=== PATIENT | female | born 1990 | race Caucasian/White ===

== ENCOUNTER → 2017-08-01 13:57 | Observation (INO) ==
[2017-08-01 12:42] LABS: Basophils % 0.1 %; Eosinophils % 0.3 %; Hematocrit 35.9 % (35.3-44.9); Hemoglobin 12.4 g/dL (11.5-15.4); Immature Granulocytes % 0.5 % (0-4); Lymphocytes # 1.5 K/mcL (0.6-4.6); Mean Corpuscular HGB Conc 34.5 g/dL (31.6-35.5); Mean Corpuscular Hemoglobin 30.2 pg (28.0-33.3); Mean Corpuscular Volume 87.3 fL (83.0-100.0); Mean Platelet Volume 10.2 fL (9.4-12.4); Monocytes # 0.6 K/mcL (0.0-1.3); Monocytes % 6.3 %; Neutrophils # 7.4 K/mcL (1.6-8.9); Platelet Count 246 K/mcL (140-400); Red Blood Count 4.11 M/mcL (3.82-4.97); Red Cell Distribution Width 12.5 % (11.5-14.5); Segmented Neutrophils % 76.8 %
[2017-08-01 12:51] LABS: Amphetamine Screen,Urine Negative ng/mL (Cutoff=1000); Barbiturate Screen,Urine Negative ng/mL (Cutoff=200); Benzodiazepines Screen,Urine Negative ng/mL (Cutoff=200); Cannabinoid Screen,Urine Negative ng/mL (Cutoff = 50); Cocaine Screen,Urine Negative ng/mL (Cutoff= 300); Opiate Screen,Urine Negative ng/mL (Cutoff=300); Phencyclidine Screen,Urine Negative ng/mL (Cutoff=25)
[2017-08-01 13:11] LABS: Alanine Aminotransferase 12 Units/L (7-52); Aspartate Amino Transferase 11 Units/L (13-39); BUN/Creatinine Ratio 20 (6-26); Blood Urea Nitrogen 9 mg/dL (6-20); Lactate Dehydrogenase 135 Units/L (140-271); eGFR For African Americans > 60 (> 60); eGFR For Non-African Americans > 60 (> 60)
[2017-08-01 13:13] LABS: Creatinine,Urine 123 mg/dL; Protein/Creatinine Ratio,Urine 0.22 mg/mg (0.00-0.20)
--- NOTE | 2017-08-01 13:16 | OB/GYN Progress Note ---
Date of Encounter: 08/01/17 Time of Encounter: 13:14 - Assessment and Plan (1) Fall Current Visit: Yes Status: Acute 23 weeks gestation. Did not hit stomach with fall, was caught as she was falling. Blood type A+ Positive movement No cramping, discharge, bleeding, contractions Likely rebound hypertension after orthstatic hypotension after standing at work. Blood pressures normal. Previous Pre-Eclampsia Labs normal Reactive NST for gestational age Discharge home Take blood pressure BID at home; seek care if >140/90. Patient has cuff at home. Encouraged frequent movement/walking when standing at work to prevent falls/ fainting Discussed when to seek care, PIH precautions and labor precautions Follow up in office with routine care and PRN. Qualifiers: Encounter type: initial encounter Qualified Code(s): W19.XXXA - Unspecified fall, initial encounter (2) 23 weeks gestation of Current Visit: Yes Status: Acute Subjective - Subjective Principal diagnosis: Fainting Spell with increased blood blood pressure after Interval history: Ms Medley is a 27 year old at 23 weeks 1 day gestation that presents to labor and delivery with c/o fainting at work this morning. 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 She states that she remembers feeling dizzy and light headed and then fell. She states that her coworkers then took her blood pressure which were 160's/100's and then have slowly decreased throughout the day. She denies any headaches, vision changes, and epigastric pain. She denies leaking of fluid, contractions, and vaginal bleeding/leaking of fluid. Antepartum ROS: movement normal, no loss of fluid, no vaginal bleeding, no contractions Objective - Vital Signs Vital Signs: Intake and Output 07/31/17 08/01/17 08/01/17 23:59 07:59 15:59 Other: Weight 127 kg Patient Weight 08/01/17 23:59 Weight 127 kg - Exam FHR: auscultation normal, category 1 FHR comments: Baseline 145 Auscultation: bilateral: normal Abdomen: Present: normal appearance, soft, gravid Uterus: Present: normal. Absent: firm - Labs Labs: Abnormal lab results Creatinine 0.46 mg/dL (0.60-1.20) L 08/01/17 12:15 AST 11 Units/L (13-39) L 08/01/17 12:15 Lactate Dehydrogenase 135 Units/L (140-271) L 08/01/17 12:15 Protein/Creatinin Ratio 0.22 mg/mg (0.00-0.20) H 08/01/17 12:15 Urine Total Protein 27 mg/dL (1-14) H 08/01/17 12:15
== END | disposition home or self-care (01) ==
LOC: 1NENULAB
PROVIDERS: ADMIT Student in an Organized Health Care Education/Training Program; ATTEND Student in an Organized Health Care Education/Training Program

== ENCOUNTER 2017-11-23 05:00 | Inpatient (IN) ==
[2017-11-23] MEDS ORDERED: Naloxone 0.4 MG/ML INJ IVP PRN (05:20)
[2017-11-23] MEDS ORDERED: Famotidine 20 MG/2 ML VIAL IVP PRN (05:20)
[2017-11-23] MEDS ORDERED: Ondansetron 4 MG/2 ML VIAL IVP PRN (05:25)
[2017-11-23] MEDS ORDERED: *HR* Nalbuphine 10 MG/ML AMPUL IVP PRN (05:25)
[2017-11-23] MEDS ORDERED: miSOPROStol 25 MCG TABLET PO PRN (05:25)
[2017-11-23] MEDS ORDERED: D5% in Lactated Ringers 1,000 ML IVC SCH (05:30)
[2017-11-23] MEDS ORDERED: Ringers Solution, Lactated 1,000 ML IVC SCH (05:30)
[2017-11-23 05:40] LABS: Basophils % 0.3 %; Eosinophils % 0.6 %; Hemoglobin 11.7 g/dL (11.5-15.4); Immature Granulocytes % 0.4 % (0-4); Lymphocytes # 1.9 K/mcL (0.6-4.6); Mean Corpuscular HGB Conc 34.4 g/dL (31.6-35.5); Mean Corpuscular Hemoglobin 30.5 pg (28.0-33.3); Mean Corpuscular Volume 88.5 fL (83.0-100.0); Mean Platelet Volume 10.9 fL (9.4-12.4); Monocytes # 0.7 K/mcL (0.0-1.3); Monocytes % 10.1 %; Neutrophils # 4.3 K/mcL (1.6-8.9); Platelet Count 191 K/mcL (140-400); Red Blood Count 3.84 M/mcL (3.82-4.97); Segmented Neutrophils % 61.6 %
[2017-11-23] MEDS ORDERED: Oxytocin 20 units/ LR 1000 mL 20 UNIT/1,000 ML BAG IVC ONE (10:34)
[2017-11-23] MEDS ORDERED: Oxytocin 20 units/ LR 1000 mL 20 UNIT/1,000 ML BAG IVC SCH ×2 (10:45→20:18)
--- NOTE | 2017-11-23 12:07 | OB Labor Progress Note ---
Date of Encounter: 11/23/17 Time of Encounter: 12:05 Labor Progress Note - Subjective Subjective: Pt reports minimal discomfort with contractions. - Cervix Cervix: 4-5/80/-1 - Heart Tones Heart Tones: Category I - Interventions Interventions: AROM for small amount clear fluid. IUPC placed. - Plan Plan: Continue to monitor and titrate pitocin. Epidural when requested. Anticipate .
--- NOTE | 2017-11-23 12:16 | OB/GYN History & Physical ---
Date of Encounter: 11/23/17 Time of Encounter: 12:09 Assessment and Plan (1) 39 weeks gestation of Current visit: Yes Status: Acute FHR 130, Category 1 Irregular ctxs per toco GBS negative Cytotec induction of labor Consider AROM and Pitocin after Cytotec Nubain/Epidural per patient request Anticipate vaginal delivery POC per consult Dr. Jasso History of Present Illness Chief complaint: Induction of labor HPI: Ms. Medley is a 27 year old at 39 weeks and 3 days gestation admitted to labor and delivery for scheduled induction of labor. PMH unremarkable, past surgical history positive for T&A and rt knee surgery. Previous complicated by Pre eclampsia. Current complicated by obesity. Denies vaginal bleeding, leaking fluid, and contractions. Denies REESE, epigastric pain and REESE. States baby moving well. Labs: A positive GBS negative Rubella immune Hep B negative RPR non reactive HIV negative Past Med Surg Social Fam HX - Past Medical History Medical history: no medical history Psychiatric history: anxiety, depression - Past Surgical History Additional surgical history: T&A, left knee surgery - Social History Smoking Status: Never smoker Smokeless Tobacco Status: No Alcohol use: none Drug use: none - Family History Father Adopted: No Family Member Ethnicity: Non- Living Status: Still Living Hx Family Cardiac Disorders: Yes Hx Family Respiratory Disorders: No Hx Family Cancer: No Hx Family GI Disorders: No Hx Family Genitourinary Disorders: No Hx Family Endocrine Disorder: No Hx Family Musculoskeletal Disorders: No Hx Family Neuromuscular Disorders: No Hx Family Neurologic Disorders: No Hx Family HEENT Disorders: No Hx Family Autoimmune Disorders: No Hx Family Reproductive Disorders: No Hx Family Psychosocial Disorders: No Hx Family Medical Disorders: No Obstetrical History - Pregnancies : 2 Para: 1 Term: 1 : 0 Ab's: 0 Livin - History/Complications History/Complications: Pre eclampsia with first Medications and Allergies Aspirin 81 mg PO ONCE 08/01/17 [History] Tablet 1 tab PO DAILY 08/01/17 [History] 3 Allergy/AdvReac Type Severity Reaction Status Date / Time No Known Allergies Allergy Verified 08/01/17 12:30 Exam - Constitutional Constitutional: well developed, well nourished, obese - HEENT HEENT: Normocephaly, Mucus Membranes Moist - Neck Neck exam: full ROM - Lungs Respiratory exam: CTAB - Cardiovascular Cardiovascular exam: RRR - Abdomen Abdomen: Present: bowel sounds normal - Extremities Extremities exam: full ROM, pedal edema, radial pulses palpable and symmetrical Deep Tendon Reflex Grade: 1+ Diminished - Vulva Vulva: bilateral: normal - Vagina Vagina: Present: normal moisture - Cervix Dilation: 3 Effacement: 80 Station: -2 (Exam per RN on admission) - Uterus Uterus exam: Present: normal size, normal contour Results Result Diagrams: 11/23/17 05:26 Abnormal lab results Hct 34.0 % (35.3-44.9) L 11/23/17 05:26 All other labs normal. - VTE Reasons for not Prescribing Prophylaxis: Treatment not Indicated - Low risk for VTE
[2017-11-23] MEDS ORDERED: Bupivacaine-MPF 0.25% 10 ML VIAL EP ONE (13:00)
[2017-11-23] MEDS ORDERED: Epidural Premix (fent/bupiv) 110 ML EP SCH (13:00)
[2017-11-23] MEDS ORDERED: *HR* FentaNYL (PF) 100 MCG/2 ML VIAL EP ONE (13:00)
[2017-11-23] MEDS ORDERED: Bupivacaine-MPF 0.25% 10 ML VIAL ONE (13:17)
[2017-11-23] MEDS ORDERED: Lidocaine -MPF 2% 5 ML VIAL ONE (13:17)
[2017-11-23] MEDS ORDERED: *HR* FentaNYL (PF) 100 MCG/2 ML VIAL ONE (13:17)
--- NOTE | 2017-11-23 14:10 | Anesthesia Evaluation PreOp ---
Date of Encounter: 11/23/17 Time of Encounter: 13:07 - Past History Planned Operation: lab Cardiac History: Denies any Significant Hx (has had elevated Bps, posible preeclampsia this .) Pulmonary History: Denies Any Significant HX JOB TRAINING SPECIALIST History: Denies Any Significant HX Other Medical History: Other (morbid obesity BMI 45) Anesthesia History: No Prior Anesthetic Complications, Past Anesthesia (T&A and left knee scope. No problems with anesthesia, no FHAP.) : Yes Alcohol Use: none Drug use: none Medications and Allergies Aspirin 81 mg PO ONCE 08/01/17 [History] Tablet 1 tab PO DAILY 08/01/17 [History] 3 Allergy/AdvReac Type Severity Reaction Status Date / Time No Known Allergies Allergy Verified 08/01/17 12:30 - Meds/Allergy Pre-op Review Medications Reviewed: Yes Allergies Reviewed: Yes Beta Blockers on Current Med List: No Anesthesia Results - Labs 11/23/17 05:26 Anesthesia Exam 153/83, 83, 16, FHTs 140s. Height: 5'8" Weight: 133kg NPO (# of Hours): >8 hours for solids Pain Scale: 7 Pain Scale Used: Numeric (1 - 10) - HEENT Pupil (Motor): Pupils equal Mallampati: II Teeth: Normal (states has slight chips upper left incisors.) - JOB TRAINING SPECIALIST LOC: Oriented JOB TRAINING SPECIALIST Motor: Normal RUE, Normal LUE, Normal RLE, Normal LLE, Normal Face JOB TRAINING SPECIALIST Sensory: Normal: RUE, LUE, RLE, LLE, Face - Cardiac Rhythm: Regular - Pulmonary Breath Sounds: bilateral Clear Respiratory Effort: Symmetrical Anesthesia Assess/Plan ASA Score: 3 Modified Hayden Scale for Level of Consciousness: Cooperative, oriented, and tranquil Anesthetic Plan: Regional Monitoring Plan: Standard Monitors
--- NOTE | 2017-11-23 14:17 | Anesthesia Procedures ---
Date of Encounter: 11/23/17 Time of Encounter: 13:20 Procedures: Anesthesia - Epidural/Spinal Patient ID/Chart reviewed: Yes Patient examined: Yes OB Eval: Gestational age: 39 OB Eval: : 2 OB Eval: Hx Para: 1 OB Eval: Dilated at (cm): 5 OB Eval: Contractions: Non-stressed pattern Consent Obtained: Yes Supplemental Oxygen: None/Room Air Site Prep: Aseptic Technique, Sterile prep and drape, Povidone-Iodine 1% Patient position: upright Local Anesthetic: Lidocaine 1% Amount of Local Anesthetic used: 6 Touhy Needle Gauge: 18 Touhy Needle Depth (cm): 8 Catheter Depth at Skin (cm): 18 Test Dose (1.5% Lido + Epi): Volume given (mls): 3 Test Dose Result: Negative Loading Dose: 0.25% Marcaine (mls): 8 Loading Dose: Fentanyl (mcg): 100 Loading Dose Administered: Thru Catheter Infusion Med: 0.125% Bupivacaine w/ 2 mcg/ml Fentanyl Infusion Rate (mls/hr): [address]: Tegaderm, Tape Interspace Used: L4-L5 Loss of Resistance (ANTON): Yes Blood: No CSF: No Paresthesia: No Vitals + FHT's: 3 Vital Signs Time 1320 1355 1400 1405 BP 153/93 138/81 132/77 135/77 Pulse 83 85 87 82 FHTs 140 140 140 140
--- NOTE | 2017-11-23 17:42 | OB/GYN Procedure Note ---
Delivery - Delivery Date: 11/23/17 Provider: Kamila Jasso Intrapartum events: none Delivery induction: misoprostol Delivery augmentation: rupture of membranes, pitocin Delivery monitor: external FHT, external uterine, internal uterine Anesthesia: epidural Quantitated Blood Loss: 100 - (s) Infant A Infant Delivery Date: 11/23/17 Delivery Time: 17:18 Presentation: vertex Position: MULU Route of delivery: Gender: Female Viability: Viable Pounds: 9 Ounces: 7 Weight Gram: 4.275 kg at 1 minute: 8 at 5 mins: 9 Shoulder Dystocia: not encountered Specimens collected: cord blood Placenta: spontaneous Cord: 3 umbilical vessels - Repair Episiotomy: none Laceration Description: Perineal - 2nd Degree - Complications Delivery complications: none Delivery comments: The patient was complete and pushing with epidural anesthesia with a spontaneous vaginal delivery in the MULU position of a vigorous female infant weighing 9 lbs.7oz. with Apgars of 8 at 1 minute and 9 at 5 minutes. Infant was placed on the maternal abdomen. The cord was clamped and cut after pulsations ceased. Cord blood obtained. The placenta was delivered spontaneous and intact. Second-degree midline vaginal/perineal laceration repaired with 3-0 Monocryl in usual fashion. No other lacerations noted. Estimated blood loss 100 mL, complications none - Disposition Mom disposition: stable in LDR disposition: stable in LDR
[2017-11-23 18:32] LABS: Alanine Aminotransferase 11 Units/L (7-52); Aspartate Amino Transferase 16 Units/L (13-39); BUN/Creatinine Ratio 16 (6-26); Blood Urea Nitrogen 12 mg/dL (6-20); Lactate Dehydrogenase 167 Units/L (140-271); Uric Acid 6.1 mg/dL (2.3-7.6); eGFR For African Americans > 60 (> 60); eGFR For Non-African Americans > 60 (> 60)
[2017-11-23] MEDS ORDERED: *HR* HYDROcodone/Acet 5/325 mg TABLET PO PRN (20:18)
[2017-11-23] MEDS ORDERED: Acetaminophen 325 MG TABLET PO PRN (20:18)
[2017-11-23] MEDS: Ibuprofen 600 MG TABLET PO SCH (22:44)
[2017-11-24 05:04] LABS: Basophils % 0.1 %; Eosinophils % 0.4 %; Hematocrit 32.3 % (35.3-44.9); Hemoglobin 10.9 g/dL (11.5-15.4); Immature Granulocytes % 0.4 % (0-4); Lymphocytes # 1.8 K/mcL (0.6-4.6); Lymphocytes % 16.1 %; Mean Corpuscular HGB Conc 33.7 g/dL (31.6-35.5); Mean Corpuscular Hemoglobin 30.2 pg (28.0-33.3); Mean Corpuscular Volume 89.5 fL (83.0-100.0); Mean Platelet Volume 10.8 fL (9.4-12.4); Monocytes # 1.1 K/mcL (0.0-1.3); Monocytes % 10.2 %; Platelet Count 158 K/mcL (140-400); Red Blood Count 3.61 M/mcL (3.82-4.97); Red Cell Distribution Width 13.2 % (11.5-14.5); Segmented Neutrophils % 72.8 %
[2017-11-24] MEDS: Ibuprofen 600 MG TABLET PO SCH ×2 (05:12→13:55)
[2017-11-24] MEDS ORDERED: Prenatal Vit/FA 1 EACH TABLET PO SCH (09:00)
--- NOTE | 2017-11-24 10:55 | Discharge Summary ---
Date of Encounter: 11/24/17 Time of Encounter: 10:52 - Discharge Diagnosis (1) Vaginal delivery Priority: Primary Status: Acute Comments: Stable in PP, meeting all PP milestones, bottle feeding, desires discharge, BP has been elevated but not in severe range. - Discharge Medications Prescriptions: Ibuprofen [Motrin] 600 mg PO Q6HR #60 tablet Docusate [Colace] 100 mg PO BID #60 capsule Home Medications: Tablet 1 tab PO DAILY 08/01/17 [History] Acetaminophen [Tylenol] 650 mg PO Q6HR PRN tablet 11/24/17 [Rx] Docusate [Colace] 100 mg PO BID #60 capsule 11/24/17 [Rx] Ibuprofen [Motrin] 600 mg PO Q6HR #60 tablet 11/24/17 [Rx] Vit/FA 1 each PO DAILY tablet 11/24/17 [Rx] Allergies/Adverse Reactions: 3 Allergy/AdvReac Type Severity Reaction Status Date / Time No Known Allergies Allergy Verified 08/01/17 12:30 Data Procedures and tests throughout hospitalization: Laboratory Tests 11/23/17 11/23/17 11/23/17 05:26 05:26 05:26 WBC 6.9 RBC 3.84 Hgb 11.7 Hct 34.0 L MCV 88.5 MCH 30.5 MCHC 34.4 RDW 13.0 Plt Count 191 MPV 10.9 Immature Gran % 0.4 Seg Neutrophils % 61.6 Lymphocytes % 27.0 Monocytes % 10.1 Eosinophils % 0.6 Basophils % 0.3 Neutrophils # 4.3 Lymphocytes # 1.9 Monocytes # 0.7 Eosinophils # 0.0 Basophils # 0.0 BUN 12 Creatinine 0.73 Est GFR ( Amer) > 60 Est GFR (Non-Af Amer) > 60 BUN/Creatinine Ratio 16 Uric Acid 6.1 AST 16 ALT 11 Lactate Dehydrogenase 167 Specimen Rejected Labelling 11/24/17 04:46 WBC 11.0 D RBC 3.61 L Hgb 10.9 L Hct 32.3 L MCV 89.5 MCH 30.2 MCHC 33.7 RDW 13.2 Plt Count 158 MPV 10.8 Immature Gran % 0.4 Seg Neutrophils % 72.8 Lymphocytes % 16.1 Monocytes % 10.2 Eosinophils % 0.4 Basophils % 0.1 Neutrophils # 8.0 Lymphocytes # 1.8 Monocytes # 1.1 Eosinophils # 0.0 Basophils # 0.0 BUN Creatinine Est GFR ( Amer) Est GFR (Non-Af Amer) BUN/Creatinine Ratio Uric Acid AST ALT Lactate Dehydrogenase Specimen Rejected Labs on day of discharge: Labs from last 24 hours 11/24/17 11/23/17 04:46 05:26 WBC 11.0 D RBC 3.61 L Hgb 10.9 L Hct 32.3 L MCV 89.5 MCH 30.2 MCHC 33.7 RDW 13.2 Plt Count 158 MPV 10.8 Immature Gran % 0.4 Seg Neutrophils % 72.8 Lymphocytes % 16.1 Monocytes % 10.2 Eosinophils % 0.4 Basophils % 0.1 Neutrophils # 8.0 Lymphocytes # 1.8 Monocytes # 1.1 Eosinophils # 0.0 Basophils # 0.0 BUN 12 Creatinine 0.73 Est GFR ( Amer) > 60 Est GFR (Non-Af Amer) > 60 BUN/Creatinine Ratio 16 Uric Acid 6.1 AST 16 ALT 11 Lactate Dehydrogenase 167 Date of admission: 11/23/17 05:07 Primary care physician: Taylor Veras CNP Consults: 11/23/17 20:18 Consult to Emergency Care Tech [CONS] Routine Comment: Vaginal delivery, consult needed Discharging clinician: Maria G Camargo Anticipated date of discharge: 11/24/17 - Patient Status Disposition: Home, Self-Care Condition: Good Functional capacity at discharge: independent ambulation Overall status at discharge: patient is back to baseline - Discharge Instructions Follow Up With: Kamila Jasso MD [Partnered Physician] - - Diet and Activity Activity: resume usual activities as tolerated Diet: regular diet Hospital Course Reason for admission: induction of labor, IUP at term Delivery: Episiotomy: none Laceration: 2nd degree Other procedures: none complications: none Discharge diagnosis: IUP at term delivered baby: female Hospital course: Delivery - Delivery Date: 11/23/17 Provider: Kamila Jasso Intrapartum events: none Delivery induction: misoprostol Delivery augmentation: rupture of membranes, pitocin Delivery monitor: external FHT, external uterine, internal uterine Anesthesia: epidural Quantitated Blood Loss: 100 - (s) A Infant Delivery Date: 11/23/17 Delivery Time: 17:18 Presentation: vertex Position: MULU Route of delivery: Gender: Female Viability: Viable Pounds: 9 Ounces: 7 Weight Gram: 4.275 kg at 1 minute: 8 at 5 mins: 9 Shoulder Dystocia: not encountered Specimens collected: cord blood Placenta: spontaneous Cord: 3 umbilical vessels - Repair Episiotomy: none Laceration Description: Perineal - 2nd Degree - Complications Delivery complications: none Delivery comments: The patient was complete and pushing with epidural anesthesia with a spontaneous vaginal delivery in the MULU position of a vigorous female infant weighing 9 lbs.7oz. with Apgars of 8 at 1 minute and 9 at 5 minutes. Infant was placed on the maternal abdomen. The cord was clamped and cut after pulsations ceased. Cord blood obtained. The placenta was delivered spontaneous and intact. Second-degree midline vaginal/perineal laceration repaired with 3-0 Monocryl in usual fashion. No other lacerations noted. Estimated blood loss 100 mL, complications none - Disposition Mom disposition: stable in PP and appropriate for discharge, Time Attestation: Total time spent providing and/or coordinating discharge services: Time Spent: Less than 30 minutes Exam - Constitutional Vitals: Temp Pulse Resp BP Pulse Ox 98.4 F 101 14 140/92 98 11/24/17 08:27 11/24/17 08:27 11/24/17 08:27 11/24/17 08:27 11/24/17 08:27 General appearance IM: A&O X 3 - Respiratory Respiratory exam: Present: CTAB - Cardiovascular Cardiovascular exam IM: Present: RRR - GI/Abdominal GI/Abdominal exam IM: normal bowel sounds, soft - Uterine Tone: Firm Uterus Position: At Umbilicus - Extremities Exam Extremities exam IM: Present: normal capillary refill, pedal edema - Neurological Exam Neurological exam: normal gait, oriented X3 - Psychiatric Additional comments: Reports good mood.
[2017-11-24 15:56] VITALS: BP 138/94
== END 2017-11-24 19:20 | disposition home or self-care (01) | DRG 775 ==
LOC: 1NENULAB 05:07 → 1NENUOBS 20:18
PROVIDERS: ADMIT Obstetrics & Gynecology; ATTEND Obstetrics & Gynecology

== ENCOUNTER 2019-07-07 06:00 | Inpatient (IN) ==
[2019-07-07] MEDS ORDERED: Naloxone 0.4 MG/ML INJ IVP PRN (06:06)
[2019-07-07] MEDS ORDERED: Metoclopramide 10 MG/2 ML VIAL IVP PRN (06:06)
[2019-07-07] MEDS ORDERED: Famotidine 20 MG/2 ML VIAL IVP PRN (06:06)
[2019-07-07] MEDS ORDERED: Lidocaine 1% 20 ML MDV INFILT PRN (06:06)
[2019-07-07] MEDS ORDERED: D5% in 0.45% NACL 1,000 ML IVC SCH (06:15)
[2019-07-07] MEDS ORDERED: Ringers Solution, Lactated 1,000 ML ONE ×2 (06:29→19:26)
[2019-07-07 06:45] LABS: Basophils % 0.3 %; Eosinophils # 0.1 K/mcL (0.0-0.6); Eosinophils % 0.8 %; Hematocrit 38.7 % (35.3-44.9); Hemoglobin 12.7 g/dL (11.5-15.4); Immature Granulocytes % 0.3 % (0-4); Lymphocytes # 1.7 K/mcL (0.6-4.6); Lymphocytes % 24.2 %; Mean Corpuscular HGB Conc 32.8 g/dL (31.6-35.5); Mean Corpuscular Volume 88.4 fL (83.0-100.0); Mean Platelet Volume 10.3 fL (9.4-12.4); Monocytes # 0.6 K/mcL (0.0-1.3); Monocytes % 8.2 %; Neutrophils # 4.7 K/mcL (1.6-8.9); Platelet Count 225 K/mcL (140-400); Red Blood Count 4.38 M/mcL (3.82-4.97); Red Cell Distribution Width 12.8 % (11.5-14.5); Segmented Neutrophils % 66.2 %; White Blood Count 7.1 K/mcL (4.3-11.1)
[2019-07-07] MEDS: miSOPROStoL 25 MCG TABLET PO PRN ×2 (07:12→11:20)
[2019-07-07 10:03] LABS: Amphetamine Screen,Urine Negative ng/mL (Cutoff=1000); Barbiturate Screen,Urine Negative ng/mL (Cutoff=200); Benzodiazepines Screen,Urine Negative ng/mL (Cutoff=200); Cannabinoid Screen,Urine Negative ng/mL (Cutoff = 50); Cocaine Screen,Urine Negative ng/mL (Cutoff= 300); Opiate Screen,Urine Negative ng/mL (Cutoff=300); Phencyclidine Screen,Urine Negative ng/mL (Cutoff=25)
[2019-07-07] MEDS ORDERED: EPHEDrine 50 MG/ML VIAL IVP PRN (11:36)
[2019-07-07] MEDS ORDERED: Bupivacaine-MPF 0.25% 10 ML VIAL EP ONE (11:36)
[2019-07-07] MEDS ORDERED: *HR* FentaNYL (PF) 100 MCG/2 ML VIAL EP ONE (11:36)
[2019-07-07] MEDS ORDERED: Epidural Premix (fent/bupiv) 110 ML EP SCH (11:45)
[2019-07-07] MEDS ORDERED: Oxytocin 20 units/ LR 1000 mL 20 UNIT/1,000 ML BAG IVC SCH (15:00)
[2019-07-07] MEDS ORDERED: *HR* Phenylephrine 10 MG/ML VIAL ONE (19:24)
[2019-07-07] MEDS ORDERED: Ondansetron 4 MG/2 ML VIAL IVP ONE (21:35)
[2019-07-08] MEDS ORDERED: Acetaminophen 325 MG TABLET PO SCH (00:37)
[2019-07-08] MEDS ORDERED: Oxytocin 20 units/ LR 1000 mL 20 UNIT/1,000 ML BAG IVC SCH (00:37)
[2019-07-08] MEDS ORDERED: Acetaminophen 325 MG TABLET PO PRN (01:00)
[2019-07-08] MEDS: Ibuprofen 600 MG TABLET PO SCH ×4 (01:55→20:45)
[2019-07-08] MEDS: Prenatal Vit/FA 1 EACH TABLET PO SCH (08:10)
[2019-07-08] MEDS ORDERED: Benzocaine/Menthol 56 GM AEROSOL SPRAY TP ONE (08:57)
[2019-07-09 08:17] VITALS: BP 119/93
[2019-07-09] MEDS: Prenatal Vit/FA 1 EACH TABLET PO SCH (08:19)
== END 2019-07-09 12:07 | disposition home or self-care (01) | DRG 806 ==
LOC: 1NENULAB 06:04 → 1NENUOBS 07-08 00:36
PROVIDERS: ADMIT Obstetrics & Gynecology; ATTEND Obstetrics & Gynecology